=== PATIENT | female | born 1945 | race Caucasian/White ===

== ENCOUNTER 2021-04-06 15:34 | Emergency (ER) | payer MEDICARE ==
[~2021-04-06 15:34] MED LIST: AMLODIPINE BESYL5 MG PO; ASPIR 8181 MG PO; DICYCLOMINE HCL20 MG PO; GABAPENTIN800 MG PO; HYDRALAZINE HCL25 MG PO; MEDROL DOSEPAK 24 MG PO; NORTRIPTYLINE H50 MG PO; PAXIL30 MG PO; ROBITUSSIN DM UD5 ML PO; TYLENOL325 MG PO; ZANAFLEX4 M1 PO
== END 2021-04-06 19:42 | disposition left against medical advice (07) ==
LOC: ER1 15:34
DX: Z53.21 Procedure and treatment not carried out due to patient leaving prior to being seen by health care provider (principal)